=== PATIENT | female | born 1995 | race Caucasian/White ===

== ENCOUNTER 2023-01-09 09:56 | Outpatient (RCR) | payer OTHER | END 2023-01-29 | LOC: M ST 09:56 | PROVIDERS: ATTEND Otolaryngology | DX: J38.3 Other diseases of vocal cords (principal) ==

== ENCOUNTER → 2024-05-26 | Outpatient (REF) | payer OTHER ==
[2024-05-26 19:38] LABS: GC DNA AMPLIFICATION NEGATIVE (NEGATIVE)
== END ==
LOC: M SFHCWAGY 17:30
PROVIDERS: ATTEND Obstetrics & Gynecology
DX: O24.414 Gestational diabetes mellitus in pregnancy, insulin controlled (principal)

== ENCOUNTER → 2024-06-09 | Outpatient (CLI) | payer OTHER ==
[2024-06-09 12:56] LABS: HEMATOCRIT 32.6 % (36.0-47.0); HEMOGLOBIN 11.1 g/dl (12.0-15.5); MEAN CORPUSCULAR HEMOGLOBIN 30.7 pg (27.0-33.0); MEAN CORPUSCULAR VOLUME 90.1 fl (80.0-96.0); PLATELET COUNT, AUTOMATED 224 10^3/uL (150-450); RED BLOOD COUNT 3.62 10^6/uL (4.00-5.40); WHITE BLOOD COUNT 9.7 10^3/uL (4.0-10.0)
[2024-06-09 14:04] LABS: HIV 1&2 SCREEN NEGATIVE (NEGATIVE)
[2024-06-09 14:12] LABS: HEPATITIS C VIRUS ABY INDEX < 0.02 INDEX (<0.8)
[2024-06-09 14:29] LABS: GC DNA AMPLIFICATION NEGATIVE (NEGATIVE)
== END ==
LOC: M PLALAB 11:26
PROVIDERS: ATTEND Obstetrics & Gynecology
DX: O24.414 Gestational diabetes mellitus in pregnancy, insulin controlled (principal); Z3A.00 Weeks of gestation of pregnancy not specified

== ENCOUNTER → 2024-06-23 | Outpatient (CLI) | payer OTHER | LOC: M WHC 11:45 | PROVIDERS: ATTEND Obstetrics & Gynecology | DX: O24.414 Gestational diabetes mellitus in pregnancy, insulin controlled (principal); Z3A.29 29 weeks gestation of pregnancy ==

== ENCOUNTER → 2024-07-21 | Outpatient (CLI) | payer OTHER | LOC: M WHC 09:10 | PROVIDERS: ATTEND Obstetrics & Gynecology | DX: O24.414 Gestational diabetes mellitus in pregnancy, insulin controlled (principal); Z3A.34 34 weeks gestation of pregnancy ==

== ENCOUNTER → 2024-08-05 | Outpatient (REF) | payer OTHER | LOC: M SFHCWAGY 16:59 | PROVIDERS: ATTEND Advanced Practice Midwife | DX: O24.414 Gestational diabetes mellitus in pregnancy, insulin controlled (principal); Z36.85 Encounter for antenatal screening for Streptococcus B ==

== ENCOUNTER → 2024-08-11 | Outpatient (CLI) | payer OTHER | LOC: M WHC 07:01 | PROVIDERS: ATTEND Advanced Practice Midwife | DX: O24.414 Gestational diabetes mellitus in pregnancy, insulin controlled (principal); Z3A.36 36 weeks gestation of pregnancy ==

== ENCOUNTER 2024-08-21 10:00 | Inpatient (IN) | payer OTHER ==
[~2024-08-21] VITALS: Ht 170.2 cm; Wt 88.0 kg
[2024-08-21] VITALS (10 sets, daily range): BP systolic 129–145; BP diastolic 79–91
[2024-08-21] MEDS ORDERED: PRENTAB9 PO (10:13)
[2024-08-21] MEDS ORDERED: OMEG10002 PO (10:17)
[2024-08-21] MEDS ORDERED: NOVO1INJ4 SC (10:43)
[2024-08-21 11:00] LABS: HEMATOCRIT 34.6 % (36.0-47.0); HEMOGLOBIN 12.1 g/dl (12.0-15.5); MEAN CORPUSCULAR HEMOGLOBIN 30.9 pg (27.0-33.0); MEAN CORPUSCULAR VOLUME 88.3 fl (80.0-96.0); PLATELET COUNT, AUTOMATED 229 10^3/uL (150-450); RED BLOOD COUNT 3.92 10^6/uL (4.00-5.40); WHITE BLOOD COUNT 10.1 10^3/uL (4.0-10.0)
[2024-08-21] MEDS ORDERED: TRANEXAMIC ACID INJection 1,000 MG in NS 100 ML IV PRN (11:45)
[2024-08-21] MEDS ORDERED: METHYLERGONOVINE MALEATE 0.2MG/ML 1ML VIAL IM PRN (11:45)
[2024-08-21] MEDS ORDERED: LIDOCAINE 1% MDV 20ML VIAL INFIL PRN (11:45)
[2024-08-21] MEDS ORDERED: CARBOPROST TROMETHAMINE 250 MCG/ML AMP IM PRN (11:45)
[2024-08-21] MEDS ORDERED: GLUCOSE 4 GM CHEW PO PRN (11:55)
[2024-08-21] MEDS ORDERED: GLUCAGON INJ 1MG VIAL SC PRN (11:55)
[2024-08-21] MEDS ORDERED: DEXTROSE 50% 50ML SYRINGE IV PRN (11:55)
[2024-08-21 12:00] LABS: HEPATITIS C VIRUS ABY INDEX < 0.02 INDEX (<0.8)
[2024-08-21] MEDS: miSOPROStol 50MCG 1/2 TABLET PO SCH (12:07)
[2024-08-21] MEDS: PENICILLIN G POTASSIUM 5 MU IV 5 MU in D5W MINI-BAG PLUS 100 ML IV STA (12:10)
[2024-08-21] MEDS: LR 1,000 ML IV SCH (12:15)
[2024-08-21] MEDS: INSULIN LISPRO (NovoLOG) PER UNIT SC SCH (15:14)
[2024-08-21] MEDS: PEN G POT 3,000,000 UNIT/50 ML 3,000,000 UNIT in IV 1 EA IV SCH (16:29)
[2024-08-21] MEDS ORDERED: HumuLIN N INSULIN (NovoLIN N) PER UNIT SC SCH (17:30)
[2024-08-21] MEDS: HumuLIN N INSULIN (NovoLIN N) PER UNIT SC SCH (19:59)
[2024-08-22] VITALS (53 sets, daily range): BP systolic 89–146; BP diastolic 53–99
[2024-08-22] MEDS: ACETAMINOPHEN 500 MG TAB PO PRN ×2 (01:12→23:44)
[2024-08-22] MEDS: OXYTOCIN DRIP 30 UNITS in IV 1 EA IV SCH ×2 (10:06→23:20)
[2024-08-22] MEDS: LR 1,000 ML IV SCH (10:12)
[2024-08-22] MEDS ORDERED: HOME MED LIST COMPLETE! XX SCH (13:50)
[2024-08-22] MEDS ORDERED: ONDANSETRON 4MG 2ML VIAL IV PRN (15:35)
[2024-08-22] MEDS ORDERED: EPIDURAL/PCA KEYS XX PRN (15:35)
[2024-08-22] MEDS ORDERED: diphenhydrAMINE 50MG/ML VIAL IV PRN (15:35)
[2024-08-22] MEDS ORDERED: NALOXONE INJ 0.4MG/1ML VIAL IV PRN (15:35)
[2024-08-22] MEDS: FENTANYL/ROPIVACAINE/NACL BAG 100 ML EPIDURAL SCH (15:49)
[2024-08-22] MEDS: LACTATED RINGER'S 1000 ML IV STA (15:51)
[2024-08-22] MEDS: metFORMIN (GLUCOPHAGE) 500MG TAB PO SCH (18:00)
[2024-08-22] MEDS: ePHEDrine SULFATE 25 MG/5 ML(5MG/ML) SYRINGE IVP PRN (18:05)
[2024-08-22] MEDS: LR 500 ML IV PRN (18:07)
[2024-08-22] MEDS ORDERED: MOM 30ML SUSPENSION UDC PO PRN (23:20)
[2024-08-22] MEDS ORDERED: RHO(D) IMMUNE GLOBULIN/MALTOSE 500MCG(2500IU)/2.2ML VIAL (WINRHO) IM SCH (23:20)
[2024-08-22] MEDS ORDERED: METHYLERGONOVINE MALEATE 0.2 MG TAB PO PRN (23:20)
[2024-08-22] MEDS ORDERED: CALCIUM CARBONATE 500 MG CHEW U/D PO PRN (23:20)
[2024-08-22] MEDS ORDERED: ANUSOL HC CREAM 30GM TOP PRN (23:20)
[2024-08-22] MEDS: OXYTOCIN DRIP 30 UNITS in IV 1 EA IV PRN (23:25)
[2024-08-23 00:17] VITALS: BP 118/75
[2024-08-23 00:53] VITALS: BP 120/68; O2SAT 98
[2024-08-23] MEDS: DIBUCAINE 1% OINTMENT 30GM TOP PRN (01:06)
[2024-08-23] MEDS: IBUPROFEN 800 MG TAB PO PRN (01:15)
[2024-08-23 05:52] VITALS: BP 121/75; O2SAT 97
[2024-08-23] MEDS: PRENATAL VITAMINS CHEWABLE TABLET PO SCH (08:10)
[2024-08-23] MEDS: ACETAMINOPHEN TAB 650MG DOSE (2X325MG) PO PRN (08:11)
[2024-08-23 18:48] VITALS: BP 122/82
[2024-08-23 18:58] VITALS: BP_SYST 146; BP_SYST 163; BP_DIAS 81; BP_DIAS 94; O2SAT 100; O2SAT 98
[2024-08-23] MEDS: IBUPROFEN 600MG TAB PO PRN (20:17)
[2024-08-24 06:00] VITALS: BP 128/76; O2SAT 97
[2024-08-24] MEDS: MEASLES,MUMPS,RUBELLA VACCINE INJ (MMR-II) SC.IMMUN ONE (09:00)
[2024-08-24] MEDS ORDERED: ACET-683 PO (11:53)
[2024-08-24] MEDS ORDERED: IBUP80TA PO (11:53)
[2024-08-24] MEDS: DOCUSATE SODIUM 100MG CAPSULE PO PRN (15:06)
== END 2024-08-24 15:44 | disposition home or self-care (01) | DRG 807 ==
LOC: M LDI 10:00 → M OBS 08-23 00:53
PROVIDERS: ADMIT Obstetrics & Gynecology; ATTEND Obstetrics & Gynecology
PROC: 3E033VJ Introduction of Other Hormone into Peripheral Vein, Percutaneous Approach (ICD-10-PCS; 2024-08-21)
PROC: 3E0P7VZ Introduction of Hormone into Female Reproductive, Via Natural or Artificial Opening (ICD-10-PCS; 2024-08-21)
PROC: 10E0XZZ Delivery of Products of Conception, External Approach (ICD-10-PCS; principal; 2024-08-22)
PROC: 0KQM0ZZ Repair Perineum Muscle, Open Approach (ICD-10-PCS; 2024-08-22)
DX: O41.03X0 Oligohydramnios, third trimester, not applicable or unspecified (principal); Z37.0 Single live birth; Z3A.38 38 weeks gestation of pregnancy; O24.414 Gestational diabetes mellitus in pregnancy, insulin controlled; O70.1 Second degree perineal laceration during delivery

== ENCOUNTER → 2025-06-10 | Outpatient (REF) | payer OTHER ==
[~2025-06-10] MED LIST: ACET-683 PO; IBUP80TA PO; NOVO1INJ4 SC; OMEG10002 PO; PRENTAB9 PO
== END ==
LOC: M SFHCDERM 17:51
PROVIDERS: ATTEND Family Medicine
DX: R21 Rash and other nonspecific skin eruption (principal)

== ENCOUNTER → 2025-07-13 | Outpatient (CLI) | payer OTHER ==
[2025-07-13 18:11] LABS: APPEARANCE, URINE CLEAR (CLEAR); BACTERIA, URINE AUTO NEGATIVE (NEGATIVE); BILIRUBIN, URINE AUTO NEGATIVE (NEGATIVE); BLOOD, URINE BLOOD NEGATIVE (NEGATIVE); GLUCOSE, URINE (UA) AUTO NEGATIVE (NEGATIVE); KETONE, URINE AUTO NEGATIVE (NEGATIVE); LEUKOCYTE ESTERASE, URINE AUTO NEGATIVE (NEGATIVE); NITRITE, URINE AUTO NEGATIVE (NEGATIVE); PROTEIN, URINE AUTO NEGATIVE (NEGATIVE); RBC, URINE AUTO 0 /HPF (0-3); SPECIFIC GRAVITY URINE AUTO 1.008 (1.002-1.035); SQUAMOUS EPITHELIAL CELL UR AU 2 /HPF (0-6); UROBILINOGEN, URINE AUTO 0.2 mg/dL (0.0-2.0); WBC, URINE AUTO 0 /HPF (0-3)
[2025-07-13 18:37] LABS: CREATININE, URINE 56.4 MG/DL; MALB URINE SIEMENS < 3.0 MG/L
[2025-07-13 18:47] LABS: D-DIMER QUANT < 0.27 ug/mL (<0.5); INR 0.89
[2025-07-15 09:42] LABS: T P ELECTROPHORESIS SO 7.6 g/dL (6.1-8.1)
== END ==
LOC: M LAB 16:51
PROVIDERS: ATTEND Physician Assistant
DX: I77.6 Arteritis, unspecified (principal)

== ENCOUNTER → 2025-07-13 | Outpatient (REF) | payer OTHER | LOC: M SFHCADAM 16:20 | PROVIDERS: ATTEND Physician Assistant | DX: Z53.9 Procedure and treatment not carried out, unspecified reason (principal) ==

== ENCOUNTER → 2025-07-14 | Outpatient (CLI) | payer OTHER | LOC: M RAD 12:00 | PROVIDERS: ATTEND Physician Assistant | DX: I77.6 Arteritis, unspecified (principal) ==

== ENCOUNTER → 2025-08-18 | Outpatient (REF) | payer OTHER | LOC: M SFHCDERM 08:00 | PROVIDERS: ATTEND Physician Assistant | DX: D48.9 Neoplasm of uncertain behavior, unspecified (principal) ==

== ENCOUNTER → 2025-08-18 | Outpatient (REF) | payer OTHER | LOC: M SFHCADAM 10:47 | PROVIDERS: ATTEND Physician Assistant | DX: I77.6 Arteritis, unspecified (principal) ==